=== PATIENT | female | born 1995 | race Caucasian/White ===

== ENCOUNTER → 2021-03-15 | Outpatient (CLI) | payer BC, OTHER ==
--- NOTE | 2021-03-15 17:18 | Diagnostic Imaging Report ---
INDICATION: Threatened miscarriage. EXAMINATION: OB ultrasound. Uterus measures 8.0 x 3.6 x 4.7 cm. There is a small amount of fluid in the endometrial cavity but no evidence for a gestational sac. There is a small involuting cyst on the left ovary. Right adnexa is unremarkable. There is no free fluid. IMPRESSION: There is no sonographic evidence for an intrauterine or extrauterine . There appears to be some fluid of mixed echogenicity in the endometrial cavity which may be blood products secondary to spontaneous . Dictated by: Dictated on workstation # [id number]
== END ==
LOC: RAD 15:54
DX: O20.0 Threatened abortion (principal)
CPT/HCPCS: 36415; 76801; 76817; 84702